=== PATIENT | male | born 1985 | race Caucasian/White ===

== ENCOUNTER 2017-11-19 19:24 | Emergency (ER) | payer BC ==
[~2017-11-19] VITALS: Ht 167.6 cm; Wt 72.6 kg
[2017-11-19] MEDS ORDERED: NS IV 1000 ML 1,000 ML ONE (19:29)
[2017-11-19] MEDS ORDERED: ONDANSETRON 4 MG/2 ML (SDV) Z0FRAN ONE (19:29)
[2017-11-19] MEDS ORDERED: NS IV 1000 ML 1,000 ML IV ONE ×2 (19:40→21:30)
[2017-11-19] MEDS ORDERED: FAMOTIDINE 20MG/2ML IV (PEPCID) IV STA (19:40)
[2017-11-19] MEDS ORDERED: HYOSCYAMINE 0.125 MG (LEVSIN) TAB SL ONE (19:45)
[2017-11-19] MEDS ORDERED: ONDANSETRON 4 MG/2 ML (SDV) Z0FRAN IVP ONE (19:45)
[2017-11-19 19:46] LABS: BASOPHILS % (AUTO) 0 % (0-10); EOSINOPHILS # (AUTO) 0.1 10^3/uL (0.0-0.3); EOSINOPHILS % (AUTO) 0 % (0-10); HEMATOCRIT 46 % (40-54); HEMOGLOBIN 16.3 G/DL (13.3-17.7); LYMPHOCYTES # (AUTO) 0.6 X 10^3 (1.0-4.0); LYMPHOCYTES % (AUTO) 3 % (12-44); MEAN CORPUSCULAR HEMOGLOBIN 32 PG (25-34); MEAN CORPUSCULAR HGB CONC 36 G/DL (32-36); MEAN CORPUSCULAR VOLUME 88 FL (80-99); MEAN PLATELET VOLUME 9.3 FL (7.4-10.4); MONOCYTES # (AUTO) 0.9 X 10^3 (0.0-1.0); MONOCYTES % (AUTO) 5 % (0-12); NEUTROPHILS # (AUTO) 16.3 X 10^3 (1.8-7.8); NEUTROPHILS % (AUTO) 92 % (42-75); PLATELET COUNT 283 10^3/uL (130-400); RED BLOOD COUNT 5.17 10^6/uL (4.35-5.85); RED CELL DISTRIBUTION WIDTH 12.3 % (10.0-14.5); WHITE BLOOD COUNT 17.9 10^3/uL (4.3-11.0)
--- NOTE | 2017-11-19 20:06 | ED GI ---
General Chief Complaint: Abdominal/GI Problems Stated Complaint: FLU Nursing Triage Note: PT FOUND W/ PARENTS LYING IN ENTRYWAY OF HOSPITAL, CONTRACTED, AFTER COLLAPSING WHILE ATTEMPTING TO WALK IN TO ED. PER PT, HAS HAD N/V/D ONSET 1430 TODAY. PT REPORTS INTERMITTENT CARPAL/PEDAL SPASMS. NO OTHER C/O VOICED Sepsis Screen: No Definite Risk Source of Information: Patient Exam Limitations: No Limitations History of Present Illness Time Seen By Provider: 19:35 Initial Comments Here with report of nausea, vomiting and diarrhea also complains of weakness. Onset today at about 230. Multiple episodes of vomiting and diarrhea. States he feels a little better afterwards and then it starts cramping and aching all over his abdomen all over again. Denies blood in his vomit or stool. Does report feeling feverish and having chills. Apparently his week with this as well. Patient is very anxious and was reporting some carpal pedal spasms. Timing/Duration: 12 Hours Severity/Quality: Moderate, Severe, Aching, Cramping Location: Generalized Abdomen Radiation: No Radiation Activities at Onset: None Modifying Factors: Improves With Defecating, Worsens With Eating, Improves With Vomiting Associated Symptoms: No Back Pain, No Chest Pain, Fever/Chills, Fatigue, Nausea /Vomiting, No Shortness of Air, Weakness Allergies and Home Medications Allergies Coded Allergies: Penicillins (Verified Allergy, Unknown, 11/19/17) cefaclor (Verified Allergy, Unknown, 11/19/17) Review of Systems Constitutional: see HPI, chills, fever, weakness EENTM: No Symptoms Reported Respiratory: No Symptoms Reported Cardiovascular: No Symptoms Reported Gastrointestinal: See HPI, Abdominal Pain, Diarrhea, Nausea, Vomiting Genitourinary: No Symptoms Reported Musculoskeletal: see HPI, muscle pain, muscle stiffness Skin: no symptoms reported Psychiatric/Neurological: Anxiety, Weakness Endocrine: No Symptoms Reported All Other Systems Reviewed Negative Unless Noted: Yes Past Ikltuje-Ziytgj-Qqzysc Hx Patient Social History Alcohol Use: Denies Use Recreational Drug Use: No Smoking Status: Never a Smoker Recent Foreign Travel: No Contact w/Someone Who Travel: No Recent Infectious Disease Expo: No Recent Hopitalizations: No Physical Abuse: No Sexual Abuse: No Mistreated: No Fear: No Surgeries History of Surgeries: Yes Surgeries: Appendectomy Cardiovascular History of Cardiac Disorders: No Neurological History of Neurological Disord: No Genitourinary History of Genitourinary Disor: No Gastrointestinal History of Gastrointestinal Di: No Musculoskeletal History of Musculoskeletal Dis: No Endocrine History of Endocrine Disorders: Yes (THYROID) Cancer History of Cancer: No Did You Recieve Any Treatments: No Psychosocial History of Psychiatric Problem: No Suicide Risk Score: 0 Integumentary History of Skin or Integumenta: No Reviewed Nursing Assessment Reviewed/Agree w Nursing PMH: Yes Family Medical History Significant Family History: No Pertinent Family Hx Physical Exam Vital Signs VS - Last 72 Hours, by Label 11/19/17 19:26 Temp 101.2 Pulse 121 Resp 24 B/P (MAP) 162/100 (120) Pulse Ox 100 O2 Delivery Room Air Capillary Refill : Less Than 3 Seconds General Appearance: WD/WN, no apparent distress HEENT: PERRL/EOMI, TMs normal, pharynx normal Neck: full range of motion, supple Respiratory: lungs clear, normal breath sounds Cardiovascular: no murmur, tachycardia Gastrointestinal: No guarding, No rebound (diffusely), tenderness Extremities: non-tender, normal inspection Back: normal inspection, no CVA tenderness, no vertebral tenderness Neurologic/Psychiatric: alert, oriented x 3 Skin: normal color, warm/dry Progress/Results/Core Measures Results/Orders Lab Results Laboratory Tests Test 11/19/17 19:30 11/19/17 20:53 Range/Units White Blood Count 17.9 H 4.3-11.0 10^3/uL Red Blood Count 5.17 4.35-5.85 10^6/uL Hemoglobin 16.3 13.3-17.7 G/DL Hematocrit 46 40-54 % Mean Corpuscular Volume 88 80-99 FL Mean Corpuscular Hemoglobin 32 25-34 PG Mean Corpuscular Hemoglobin Concent 36 32-36 G/DL Red Cell Distribution Width 12.3 10.0-14.5 % Platelet Count 283 130-400 10^3/uL Mean Platelet Volume 9.3 7.4-10.4 FL Neutrophils (%) (Auto) 92 H 42-75 % Lymphocytes (%) (Auto) 3 L 12-44 % Monocytes (%) (Auto) 5 0-12 % Eosinophils (%) (Auto) 0 0-10 % Basophils (%) (Auto) 0 0-10 % Neutrophils # (Auto) 16.3 H 1.8-7.8 X 10^3 Lymphocytes # (Auto) 0.6 L 1.0-4.0 X 10^3 Monocytes # (Auto) 0.9 0.0-1.0 X 10^3 Eosinophils # (Auto) 0.1 0.0-0.3 10^3/uL Basophils # (Auto) 0.0 0.0-0.1 10^3/uL Neutrophils % (Manual) 93 % Lymphocytes % (Manual) 3 % Monocytes % (Manual) 1 % Eosinophils % (Manual) 0 % Basophils % (Manual) 0 % Band Neutrophils 3 % Blood Morphology Comment NORMAL Sodium Level 141 135-145 MMOL/L Potassium Level 3.9 3.6-5.0 MMOL/L Chloride Level 104 98-107 MMOL/L Carbon Dioxide Level 19 L 21-32 MMOL/L Anion Gap 18 H 5-14 MMOL/L Blood Urea Nitrogen 15 7-18 MG/DL Creatinine 1.29 0.60-1.30 MG/DL Estimat Glomerular Filtration Rate > 60 BUN/Creatinine Ratio 12 Glucose Level 140 H 70-105 MG/DL Calcium Level 9.7 8.5-10.1 MG/DL Magnesium Level 1.5 L 1.8-2.4 MG/DL Total Bilirubin 1.8 H 0.1-1.0 MG/DL Aspartate Amino Transf (AST/SGOT) 20 5-34 U/L Alanine Aminotransferase (ALT/SGPT) 13 0-55 U/L Alkaline Phosphatase 68 40-136 U/L Total Protein 7.5 6.4-8.2 GM/DL Albumin 4.6 H 3.2-4.5 GM/DL Urine Color YELLOW Urine Clarity CLEAR Urine pH 8 5-9 Urine Specific [place] 1.010 L 1.016-1.022 Urine Protein 1+ H NEGATIVE Urine Glucose (UA) 4+ H NEGATIVE Urine Ketones 2+ H NEGATIVE Urine Nitrite NEGATIVE NEGATIVE Urine Bilirubin NEGATIVE NEGATIVE Urine Urobilinogen NORMAL NORMAL MG/DL Urine Leukocyte Esterase NEGATIVE NEGATIVE Urine RBC (Auto) NEGATIVE NEGATIVE Urine RBC NONE /HPF Urine WBC RARE /HPF Urine Crystals NONE /LPF Urine Bacteria NEGATIVE /HPF Urine Casts NONE /LPF Urine Mucus NEGATIVE /LPF Urine Culture Indicated NO My Orders Orders - DOMENIC ENRIQUE MD Ondansetron Injection (Zofran Injectio (11/19/17 19:29) Ns Iv 1000 Ml (Sodium Chloride 0.9%) (11/19/17 19:29) Cbc With Automated Diff (11/19/17 19:40) Comprehensive Metabolic Panel (11/19/17 19:40) Magnesium (11/19/17 19:40) Ua Culture If Indicated (11/19/17 19:40) Saline Lock/Iv-Start (11/19/17 19:40) Ns Iv 1000 Ml (Sodium Chloride 0.9%) (11/19/17 19:40) Ondansetron Injection (Zofran Injectio (11/19/17 19:45) Famotidine Injection (Pepcid Injection) (11/19/17 19:40) Hyoscyamine Sl Tablet (Levsin Sl Tablet) (11/19/17 19:45) Manual Differential (11/19/17 19:30) D5 Ns 1000 Ml Iv Solution (Dextrose 5%/0 (11/19/17 20:10) D5 Ns 1000 Ml Iv Solution (Dextrose 5%/0 (11/19/17 20:09) Ns Iv 1000 Ml (Sodium Chloride 0.9%) (11/19/17 21:30) Acetaminophen Tablet (Tylenol Tablet) (11/19/17 21:30) Acetaminophen Tablet (Tylenol Tablet) (11/19/17 21:30) Medications Given in ED Current Medications Medications Dose Ordered Sig/Jose Route Start Time Stop Time Status Last Admin Dose Admin Hyoscyamine Sulfate 0.125 mg ONCE ONCE SL 11/19/17 19:45 11/19/17 19:46 DC 11/19/17 19:50 0.125 MG Ondansetron HCl 8 mg ONCE ONCE IVP 11/19/17 19:45 11/19/17 19:46 DC 11/19/17 19:32 8 MG Sodium Chloride 1,000 ml @ 0 mls/hr Q0M ONCE IV 11/19/17 19:40 11/19/17 19:42 DC 11/19/17 19:32 1,000 MLS/HR Sodium Chloride 1,000 ml @ 0 mls/hr Q0M ONCE IV 11/19/17 21:30 11/19/17 21:32 DC 11/19/17 21:35 1,000 MLS/HR Vital Signs/I&O Vital Sign - Last 12Hours 11/19/17 19:26 Temp 101.2 Pulse 121 Resp 24 B/P (MAP) 162/100 (120) Pulse Ox 100 O2 Delivery Room Air Blood Pressure Mean: 120 Progress Note : Progress Note Seen and evaluated. IV, labs, UA, normal saline 1 L bolus, Zofran 8 mg IV, Pepcid 20 mg IV, Levsin 0.125 mg by mouth and Toradol 30 mg IV ordered. Monitor patient. Repeat fluids bolus with D5NS 1 L bolus. Patient is improving. Still feels weak. Repeat normal saline 1 L bolus. 2215: Patient is feeling better at this time. He feels like he can tolerate at home. Discharge home with return precautions. Patient verbalize understanding instructions and agreement with plan. Departure Impression Impression: Primary Impression: Nausea and vomiting Qualified Codes: R11.2 - Nausea with vomiting, unspecified Additional Impression: Diarrhea Qualified Codes: R19.7 - Diarrhea, unspecified Disposition: 01 HOME, SELF-CARE Condition: Stable Departure-Patient Inst. Decision time for Depature: 22:25 Referrals: ALVARO BHAKTA MD (PCP) Primary Care Physician Patient Instructions: Diarrhea and Traveler's Diarrhea, Adult (DC), Nausea and Vomiting, Adult (DC), Acute Abdomen (Belly Pain), Adult (DC) Add. Discharge Instructions: All discharge instructions reviewed with patient and/or family. Voiced understanding. Clear liquid diet for 24 hours and then advance as tolerated. Take small sips frequently of fluids. Take medications as directed. Follow-up with your doctor in 2 days for recheck and further evaluation as needed. Return for worse pain, fever, vomiting, weakness, breathing problems or other concerns as needed. Scripts Ondansetron (Ondansetron Odt) 4 Mg Tab.rapdis 4 MG PO Q6H Y for NAUSEA/VOMITING, #8 TAB 0 Refills Prov: DOMENIC ENRIQUE MD 11/19/17 DOMENIC ENRIQUE MD Nov 19, 2017 20:06
[2017-11-19] MEDS ORDERED: D5 NS 1000 ML IV SOLUTION 1,000 ML IV ONE (20:09)
[2017-11-19 20:10] LABS: BAND NEUTROPHILS 3 %; BASOPHILS % (MANUAL) 0 %; EOSINOPHILS % (MANUAL) 0 %; LYMPHOCYTES % (MANUAL) 3 %; MONOCYTES % (MANUAL) 1 %; NEUTROPHILS % (MANUAL) 93 %; RBC MORPH NORMAL
[2017-11-19] MEDS ORDERED: D5 NS 1000 ML IV SOLUTION 1,000 ML IV STA (20:10)
[2017-11-19 20:12] LABS: ALANINE AMINOTRANSFERASE 13 U/L (0-55); ALBUMIN 4.6 GM/DL (3.2-4.5); ALKALINE PHOSPHATASE 68 U/L (40-136); BILIRUBIN,TOTAL 1.8 MG/DL (0.1-1.0); BUN/CREATININE RATIO 12; CALCIUM 9.7 MG/DL (8.5-10.1); CARBON DIOXIDE 19 MMOL/L (21-32); CHLORIDE 104 MMOL/L (98-107); CREATININE SERUM 1.29 MG/DL (0.60-1.30); GFR ESTIMATED > 60; GLUCOSE 140 MG/DL (70-105); MAGNESIUM 1.5 MG/DL (1.8-2.4); POTASSIUM 3.9 MMOL/L (3.6-5.0); SODIUM 141 MMOL/L (135-145); TOTAL PROTEIN 7.5 GM/DL (6.4-8.2)
[2017-11-19 21:02] LABS: BILIRUBIN,URINE NEGATIVE (NEGATIVE); CLARITY,URINE CLEAR; COLOR,URINE YELLOW; GLUCOSE, URINE (UA) 4+ (NEGATIVE); KETONES,URINE 2+ (NEGATIVE); LEUKOCYTE ESTERASE ,URINE NEGATIVE (NEGATIVE); NITRITE,URINE NEGATIVE (NEGATIVE); PH,URINE 8 (5-9); PROTEIN,URINE 1+ (NEGATIVE); UROBILINOGEN,URINE NORMAL (NORMAL)
[2017-11-19 21:26] LABS: BACTERIA,URINE NEGATIVE /HPF; WBC,URINE RARE /HPF
[2017-11-19] MEDS ORDERED: ACETAMINOPHEN 500 MG TAB (TYLENOL) ONE (21:30)
[2017-11-19] MEDS ORDERED: ACETAMINOPHEN 500 MG TAB (TYLENOL) PO STA (21:30)
[2017-11-19] MEDS ORDERED: ONDA4TAB11 PO (22:26)
[2017-11-19] MEDS ORDERED: RX-ONDANSETRON 4 MG ODT (ZOFRAN) PPK #4 PO STA (22:27)
[2017-11-19 22:36] VITALS: BP 123/66
== END 2017-11-19 22:36 | disposition home or self-care (01) ==
LOC: EDUNIT# 19:24 → ER 19:26
DX: R11.2 Nausea with vomiting, unspecified (principal); R19.7 Diarrhea, unspecified; Z90.49 Acquired absence of other specified parts of digestive tract
CPT/HCPCS: 36415; 80053; 81000; 83735; 85007; 85027

== ENCOUNTER 2018-07-09 05:35 | Outpatient (CLI) | payer BC ==
[~2018-07-09] VITALS: Ht 167.6 cm; Wt 72.6 kg
[~2018-07-09 05:35] MED LIST: ONDA4TAB11 PO
[2018-07-09] MEDS ORDERED: LEVO112T2 PO (10:02)
== END 2018-07-09 10:06 | disposition home or self-care (01) ==
LOC: PREOP 05:35
PROVIDERS: ATTEND Surgery
DX: Z01.818 Encounter for other preprocedural examination (principal)

== ENCOUNTER → 2018-12-26 | Outpatient (CLI) | payer BC ==
[~2018-12-26] VITALS: Ht 167.6 cm; Wt 72.6 kg
[~2018-12-26] MED LIST changes: +LEVO112T2 PO; +NS IV 1000 ML 1,000 ML ONE; +ONDANSETRON 4 MG/2 ML (SDV) Z0FRAN IM/IV PRN; +PANT40TA2 PO
[2018-12-26 11:00] VITALS: BP 105/50
[2018-12-26] MEDS: NS IV 1000 ML 1,000 ML IV SCH ×2 (11:06→12:54)
[2018-12-26 15:00] VITALS: BP 105/50
== END ==
LOC: SDC 10:38
PROVIDERS: ATTEND Family Medicine
DX: G43.A1 Cyclical vomiting, in migraine, intractable (principal); E86.9 Volume depletion, unspecified
CPT/HCPCS: 96360; 96361

== ENCOUNTER 2023-05-24 06:59 | Emergency (ER) | payer BC, OTHER ==
[~2023-05-24] VITALS: Ht 167 cm; Wt 72.5 kg
[~2023-05-24 06:59] MED LIST changes: -NS IV 1000 ML 1,000 ML ONE; -ONDANSETRON 4 MG/2 ML (SDV) Z0FRAN IM/IV PRN
[2023-05-24] MEDS ORDERED: ONDA8TAB13 SL (07:21)
[2023-05-24] MEDS ORDERED: DICY20TA PO (07:21)
--- NOTE | 2023-05-24 07:22 | ED GI ---
General Chief Complaint: Abdominal/GI Problems Stated Complaint: VOMITING X2 DAYS Source of Information: Patient Exam Limitations: No Limitations History of Present Illness Date Seen by Provider: May 24, 2023 Time Seen by Provider: 07:08 Initial Comments 37-year-old male presents the emergency department today for nausea vomiting and diarrhea. Symptoms started about 24 hours ago as diarrhea. He vomited once about 12 hours into his illness. Emesis is nonbloody nonbilious. Diarrhea is nonbloody. He vomited once more this morning. He states he has been using an [id number] nausea medicine at home. No known sick contacts. No fevers or chills. He has diffuse abdominal cramping and request something for this. All other systems reviewed and negative except documented per HPI. Voice recognition software was used to help create this chart Allergies and Home Medications Allergies Coded Allergies: Penicillins (Verified Allergy, Mild, HIVE, 07/09/18) cefaclor (Verified Allergy, Mild, HIVES, 07/09/18) Patient Home Medication List Home Medication List Reviewed: Yes Levothyroxine Sodium (Synthroid) 112 Mcg Tablet, 112 MCG PO DAILY, (Reported) Entered as Reported by: GILMA SHAH on 07/09/18 1002 Pantoprazole Sodium (Protonix) 40 Mg Tablet., 40 MG PO DAILY Prescribed by: MEÑO MÉNDEZ on 07/16/18 0857 Review of Systems Review of Systems Constitutional: see HPI Past Pthmyuo-Ncrpgj-Ddbthi Hx Patient Social History Tobacco Use?: No Substance use?: No Alcohol Use?: No Pt feels they are or have been: No Seasonal Allergies Seasonal Allergies: Yes Past Medical History Surgery/Hospitalization HX: SX: APPY PMH: HYPOTHYROIDISM Surgeries: Yes Appendectomy Cardiac: No Neurological: No Reproductive Disorders: No Sexually Transmitted Disease: No HIV/AIDS: No Genitourinary: No Gastrointestinal: No Musculoskeletal: No Endocrine: Yes (THYROID) Loss of Vision: Denies Hearing Impairment: Denies Cancer: No Did You Recieve Any Treatments: No Psychosocial: No Integumentary: No Adverse Reaction/Blood Tranf: No (N/A) Family Medical History No Pertinent Family Hx Physical Exam Vital Signs Capillary Refill : Height/Weight/BMI Height: 5'6.00" Weight: 160lbs. 0.0oz. [id number]; 25.8 BMI Method:Stated General Appearance: WD/WN, no apparent distress HEENT: normal ENT inspection, pharynx normal, other (Mucous membranes moist) Neck: non-tender Respiratory: chest non-tender, lungs clear, normal breath sounds, no respiratory distress, no accessory muscle use Cardiovascular: regular rate, rhythm, no murmur Gastrointestinal: normal bowel sounds, non tender, soft, no organomegaly Neurologic/Psychiatric: alert, normal mood/affect, oriented x 3 Skin: normal color, warm/dry Departure Communication (Admissions) Patient is hemodynamically stable. He has vomited twice, tolerating p.o. and has normal vital signs. No clinical evidence of dehydration with moist mucous membranes, normal vital signs. Discharged home with Bentyl for abdominal cramping and Zofran for nausea. Impression Primary Impression: Nausea vomiting and diarrhea Disposition: HOME, SELF-CARE Condition: Stable Departure-Patient Inst. Referrals: MORGAN SCHWAB MD (PCP/Family) Primary Care Physician Patient Instructions: Nausea and Vomiting, Adult ED Add. Discharge Instructions: Use the nausea medicine as prescribed by dissolving it under your tongue as needed. Use the Bentyl as needed for abdominal cramping. Increase your fluids by taking small sips of fluids every 15 minutes. Return to the emergency department for any severe concerns. Follow-up with your primary doctor for any nonemergent needs. All discharge instructions reviewed with patient and/or family. Voiced understanding. Scripts Ondansetron (Ondansetron Odt) 8 Mg Tab.rapdis 8 MG SL Q6H PRN for NAUSEA/VOMITING for 5 Days, #20 TAB Prov: SLIM ALFREDO DO 05/24/23 Dicyclomine HCl (Dicyclomine HCl) 20 Mg Tablet 20 MG PO TID for Abdominal Pain for 3 Days, #9 TAB Prov: SLIM ALFREDO DO 05/24/23 SLIM ALFREDO DO May 24, 2023 07:21
[2023-05-24 07:26] VITALS: BP 137/83
== END 2023-05-24 07:25 | disposition home or self-care (01) ==
LOC: EDUNIT# 06:59 → ER 07:02
DX: R11.2 Nausea with vomiting, unspecified (principal); R19.7 Diarrhea, unspecified; R10.84 Generalized abdominal pain; Z90.49 Acquired absence of other specified parts of digestive tract
CPT/HCPCS: 99281